=== PATIENT | female | born 1990 | race African-American/Black ===

== ENCOUNTER 2020-10-14 15:54 | Emergency (ER) | payer OTHER ==
[~2020-10-14] VITALS: Ht 160 cm; Wt 59.0 kg
[2020-10-14] MEDS ORDERED: ONDANSETRON HCL 4 MG/2 ML VIAL IV ONE (17:00)
[2020-10-14] MEDS ORDERED: SODIUM CHLORIDE 0.9% 1,000 ML IV ONE ×2 (17:00→18:30)
[2020-10-14 17:19] LABS: Basophils # (auto) 0.1 10 ^3/uL (0-0.2); Eosinophils # (auto) 0 10 ^3/uL (0-0.8); Lymphocytes # (auto) 1.9 10 ^3/uL (0.4-5.4); Monocytes # (auto) 0.4 10 ^3/uL (0-1.3); Neutrophils # (auto) 2.4 10 ^3/uL (1.6-8.6); Nucleated Red Blood Cells % 0.1 %; White Blood Cell 4.8 10^3/uL (4.4-10.8)
[2020-10-14 17:21] LABS: Basophils % (auto) 1.1 % (0.0-2.0); Eosinophils % (auto) 0.4 % (0.0-7.0); Hematocrit 46.9 % (36.0-46.0); Hemoglobin 15.9 g/dL (12.2-16.2); Lymphocytes % (auto) 39.2 % (10.0-50.0); Mean Corpuscular Hemoglobin 26.8 pg (28.0-32.0); Mean Corpuscular Volume 78.8 fL (80.0-100.0); Neutrophils % (auto) 51.3 % (37.0-80.0); Red Blood Cells 5.95 10^6/uL (4.0-5.20); Red Cell Distribution Width 16.2 % (11.8-14.3)
[2020-10-14 17:30] VITALS: BP 116/72
[2020-10-14 17:36] LABS: Anion Gap 15 (5-15); BUN/Creatinine Ratio 14.9; Blood Urea Nitrogen 10 mg/dL (7-18); Calcium 9.1 mg/dL (8.5-10.1); Carbon Dioxide 18 mmol/L (21-32); Chloride 105 mmol/L (98-107); GFR African American 131 mL/min; GFR Non-African American 108 mL/min; Glucose 84 mg/dL (74-106); Potassium 3.4 mmol/L (3.5-5.1); Sodium 138 mmol/L (136-145)
== END 2020-10-14 19:07 | disposition home or self-care (01) ==
LOC: ER 15:55
DX: O20.0 Threatened abortion (principal); E86.0 Dehydration; Z88.0 Allergy status to penicillin; Z3A.01 Less than 8 weeks gestation of pregnancy
CPT/HCPCS: 36415; 76801; 76817; 80048; 84702; 85025; 96361; 96374; 99284; J2405; J7030